=== PATIENT | female | born 1930 | race Caucasian/White ===

== ENCOUNTER 2019-05-07 16:38 | Inpatient (IN) ==
[2019-05-07] MEDS ORDERED: SODIUM CHLORIDE 0.9% 500 ML IV STA (17:13)
[2019-05-07] MEDS ORDERED: VANCOMYCIN INJ 1,000 MG in SODIUM CHLORIDE 0.9% 250 ML IV STA ×2 (17:13→17:16)
[2019-05-07 17:30] LABS: Basophils % 0.3 % (0.0-0.8); Eosinophils # 0.1 10*3/uL (0.0-0.87); Eosinophils % 0.8 % (0.00-10.9); Hematocrit 40.3 VOL% (35.7-47.0); Hemoglobin 13.4 GM/DL (12.0-16.0); Immature Granulocytes % 0.3 %; Immature Granulocytes Absolute 0.03 #; Lymphocytes # 1.5 10*3/uL (1.4-4.0); Mean Corpuscular HGB Conc 33.3 GM/DL (32-36); Mean Corpuscular Volume 89.6 FL (87-102); Mean Platelet Volume 11.5 FL (9.6-12.0); Monocytes % 9.1 % (1.7-12.7); Neutrophils % 73.5 % (38.7-73.9); Platelet Count 248 T/CUMM (130-400); White Blood Count 9.1 T/CUMM (4-12)
[2019-05-07 17:48] LABS: Albumin 2.8 G/DL (3.4-5.0); Bilirubin,Total 0.5 MG/DL (0.2-1.0); Calcium 9.5 MG/DL (8.5-10.1); Osmolality,Calculated 273.8 MOS/KG (273-304)
[2019-05-07] MEDS ORDERED: ACETAMINOPHEN 325 MG TABLET PO PRN (20:34)
[2019-05-07] MEDS ORDERED: ONDANSETRON 4 MG/2 ML VIAL IV PRN (20:34)
[2019-05-07] MEDS ORDERED: MORPHINE 4 MG/1 ML VIAL IV PRN (20:34)
[2019-05-07] MEDS ORDERED: ACETAMINOPHEN 500 MG TABLET PO PRN (20:34)
[2019-05-07] MEDS: carvediloL 3.125 MG TABLET PO SCH (21:13)
[2019-05-07] MEDS: MECLIZINE 12.5 MG TABLET PO SCH (21:13)
[2019-05-07] MEDS: MEMANTINE 10 MG TABLET PO SCH (21:13)
[2019-05-07] MEDS: CHOLECALCIFEROL 1,000 UNIT TABLET PO SCH (21:13)
[2019-05-07] MEDS: SODIUM CHLORIDE 0.9% 1,000 ML IV SCH (21:17)
[2019-05-07] MEDS: RIVASTIGMINE 1.5 MG CAPSULE PO SCH (21:24)
[2019-05-07] MEDS: traZODone 50 MG TABLET PO SCH (21:24)
[2019-05-08 04:52] LABS: Basophils % 0.6 % (0.0-0.8); Eosinophils # 0.1 10*3/uL (0.0-0.87); Eosinophils % 1.9 % (0.00-10.9); Hematocrit 33.3 VOL% (35.7-47.0); Immature Granulocytes % 0.3 %; Immature Granulocytes Absolute 0.02 #; Lymphocytes # 1.4 10*3/uL (1.4-4.0); Lymphocytes % 21.4 % (21.3-54.2); Mean Corpuscular HGB Conc 33.3 GM/DL (32-36); Mean Corpuscular Volume 89.3 FL (87-102); Mean Platelet Volume 12.3 FL (9.6-12.0); Neutrophils % 64.8 % (38.7-73.9); Platelet Count 223 T/CUMM (130-400); Red Blood Count 3.73 MC/CUMM (3.8-5.5); Red Cell Distribution Width 13.1 % (9.3-17.3); White Blood Count 6.7 T/CUMM (4-12)
[2019-05-08 04:57] LABS: Hemoglobin 11.1 GM/DL (12.0-16.0)
[2019-05-08 05:03] LABS: Albumin 2.2 G/DL (3.4-5.0); Bilirubin,Total 0.6 MG/DL (0.2-1.0); Calcium 8.7 MG/DL (8.5-10.1); Osmolality,Calculated 276.5 MOS/KG (273-304); Total Protein 5.6 G/DL (6.4-8.3)
[2019-05-08] MEDS: LEVOTHYROXINE 100 MCG TABLET PO SCH (06:17)
[2019-05-08] MEDS: MECLIZINE 12.5 MG TABLET PO SCH ×3 (10:05→20:32)
[2019-05-08] MEDS ORDERED: LIDOCAINE 1%/EPI INJ 20 ML VIAL ONE (11:49)
[2019-05-08] MEDS ORDERED: BUPIVACAINE 0.5% 50 ML VIAL ONE (11:49)
[2019-05-08] MEDS ORDERED: LACTATED RINGERS 1,000 ML IV SCH (12:00)
[2019-05-08] MEDS ORDERED: LIDOCAINE 2% 5 ML VIAL ONE (12:32)
[2019-05-08] MEDS ORDERED: PROPOFOL 200 MG/20 ML VIAL IV ONE (12:32)
[2019-05-08] MEDS: SODIUM CHLORIDE 0.9% 1,000 ML IV SCH (13:05)
[2019-05-08] MEDS: RIVASTIGMINE 1.5 MG CAPSULE PO SCH ×2 (13:40→20:32)
[2019-05-08] MEDS: traZODone 50 MG TABLET PO SCH ×2 (13:40→20:32)
[2019-05-08] MEDS: PANTOPRAZOLE 40 MG TABLET PO SCH (13:40)
[2019-05-08] MEDS: VERAPAMIL 120 MG TABLET PO SCH (13:40)
[2019-05-08] MEDS: LOSARTAN 50 MG TABLET PO SCH (13:40)
[2019-05-08] MEDS: CHOLECALCIFEROL 1,000 UNIT TABLET PO SCH ×2 (13:40→20:32)
[2019-05-08] MEDS: POTASSIUM CHLORIDE 10 MEQ TABLET PO SCH (13:40)
[2019-05-08] MEDS: MEMANTINE 10 MG TABLET PO SCH ×2 (13:41→20:32)
[2019-05-08] MEDS: carvediloL 3.125 MG TABLET PO SCH ×2 (13:41→20:32)
[2019-05-08] MEDS: ASPIRIN EC 81 MG TABLET PO SCH (13:41)
[2019-05-08] MEDS ORDERED: VANCOMYCIN INJ 1,000 MG in SODIUM CHLORIDE 0.9% 250 ML IV SCH (18:00)
[2019-05-09] MEDS ORDERED: ALBUTEROL/IPRATROPIUM 3 ML NEB RESP TX STA (03:58)
[2019-05-09] MEDS ORDERED: FUROSEMIDE 40 MG/4 ML VIAL ONE (04:15)
[2019-05-09 04:17] LABS: Basophils # 0.1 10*3/uL (0.0-0.2); Basophils % 0.8 % (0.0-0.8); Eosinophils # 0.2 10*3/uL (0.0-0.87); Eosinophils % 2.3 % (0.00-10.9); Hemoglobin 12.8 GM/DL (12.0-16.0); Immature Granulocytes % 0.4 %; Immature Granulocytes Absolute 0.03 #; Lymphocytes # 2.6 10*3/uL (1.4-4.0); Lymphocytes % 34.3 % (21.3-54.2); Mean Corpuscular Volume 92.2 FL (87-102); Mean Platelet Volume 11.4 FL (9.6-12.0); Monocytes % 6.4 % (1.7-12.7); Neutrophils % 55.8 % (38.7-73.9); Platelet Count 295 T/CUMM (130-400); Red Blood Count 4.34 MC/CUMM (3.8-5.5); Red Cell Distribution Width 12.9 % (9.3-17.3); White Blood Count 7.7 T/CUMM (4-12)
[2019-05-09] MEDS ORDERED: FUROSEMIDE 40 MG/4 ML VIAL IV STA (04:20)
[2019-05-09 04:37] LABS: Albumin 2.5 G/DL (3.4-5.0); Bilirubin,Total 0.5 MG/DL (0.2-1.0); Calcium 8.9 MG/DL (8.5-10.1); Osmolality,Calculated 285.4 MOS/KG (273-304); Total Protein 6.3 G/DL (6.4-8.3)
[2019-05-09] MEDS ORDERED: FUROSEMIDE 40 MG/4 ML VIAL IV ONE (05:15)
[2019-05-09] MEDS ORDERED: ENOXAPARIN 80 MG/0.8 ML SYRINGE SUBCUT ONE (05:15)
[2019-05-09] MEDS ORDERED: ASPIRIN CHEW 81 MG TABLET PO ONE (05:16)
[2019-05-09] MEDS ORDERED: ASPIRIN 325 MG TABLET ONE (05:17)
[2019-05-09] MEDS ORDERED: ENOXAPARIN 80 MG/0.8 ML SYRINGE SUBCUT SCH ×2 (05:30→17:30)
[2019-05-09] MEDS: SODIUM CHLORIDE 0.9% 1,000 ML IV SCH (05:41)
[2019-05-09] MEDS ORDERED: NOREPINEPHRINE 4 MG/4 ML VIAL IV ONE (06:10)
[2019-05-09] MEDS ORDERED: ATROPINE 1 MG/10 ML SYRINGE ONE (06:12)
[2019-05-09 06:14] LABS: Allen Test Positive
[2019-05-09 06:16] LABS: ABG Base Excess -8.6 MMOL/L (-2.5-2.5); ABG HCO3 17.6 MMOL/L (20-26); ABG Oxygen Saturation 96.7 % (95-100); ABG PCO2 57.2 MM HG (35-48); ABG TCO2 19.1 MMOL/L (23-27)
[2019-05-09 06:18] LABS: ABG PH 7.173 (7.35-7.45)
[2019-05-09] MEDS ORDERED: SODIUM BICARB INJ 150 MEQ in DEXTROSE 5% 850 ML IV SCH (06:30)
[2019-05-09] MEDS ORDERED: SODIUM BICARBONATE 50 MEQ/50 ML VIAL IV ONE (06:30)
[2019-05-09] MEDS ORDERED: ATROPINE 1 MG/10 ML SYRINGE IV ONE (06:32)
[2019-05-09] MEDS: LEVOTHYROXINE 100 MCG TABLET PO SCH (06:33)
[2019-05-09] MEDS ORDERED: NOREPINEPHRINE 8 MG in SODIUM CHLORIDE 0.9% 242 ML IV PRN (06:35)
[2019-05-09] MEDS: MORPHINE 4 MG/1 ML VIAL IV PRN ×5 (07:31→20:08)
[2019-05-09 07:34] VITALS: BP 114/93
[2019-05-09] MEDS: MECLIZINE 12.5 MG TABLET PO SCH (07:37)
[2019-05-09] MEDS: VERAPAMIL 120 MG TABLET PO SCH (07:37)
[2019-05-09] MEDS: ASPIRIN EC 81 MG TABLET PO SCH (07:37)
[2019-05-09] MEDS: LOSARTAN 50 MG TABLET PO SCH (07:38)
[2019-05-09] MEDS: traZODone 50 MG TABLET PO SCH (07:38)
[2019-05-09] MEDS: RIVASTIGMINE 1.5 MG CAPSULE PO SCH (07:38)
[2019-05-09] MEDS: carvediloL 3.125 MG TABLET PO SCH (07:38)
[2019-05-09] MEDS: POTASSIUM CHLORIDE 10 MEQ TABLET PO SCH (07:38)
[2019-05-09] MEDS: CHOLECALCIFEROL 1,000 UNIT TABLET PO SCH (07:39)
[2019-05-09] MEDS: MEMANTINE 10 MG TABLET PO SCH (07:39)
[2019-05-09] MEDS ORDERED: POLYETHYLENE GLYCOL POWDER 17 GM PACK PO SCH (08:00)
[2019-05-09] MEDS: PANTOPRAZOLE 40 MG TABLET PO SCH (08:15)
[2019-05-09] MEDS ORDERED: LORazepam 2 MG/1 ML VIAL IV PRN (21:02)
== END 2019-05-10 00:55 | disposition expired | DRG 579 ==
LOC: EDUNIT# → EDBD → N.EDINP 16:38 → N.ED 16:38 → N.EDINP 19:40 → N.5E 19:48 → N.CC 05-09 04:02
PROVIDERS: ADMIT Surgery; ATTEND Surgery